=== PATIENT | female | born 1950 | race Hispanic/Latino ===

== ENCOUNTER 2017-09-11 09:41 | Day surgery (SDC) | payer MEDICARE ==
--- NOTE | 2017-09-11 11:18 | CP.SDSHP ---
Same Day Surgery H & P - History Proposed Procedure: endosocpy Pre-Op Diagnosis: dysphagia, epig pain - Previous Medical/Surgical History Neuro: Seizure Disorder - Allergies Allergies: Allergies acetaminophen [From Tylenol] Adverse Reaction (Verified 09/11/17 10:16) ANAPHYLAXIS alprazolam [From Xanax] Adverse Reaction (Verified 09/11/17 10:16) ANAPHYLAXIS celecoxib [From Celebrex] Adverse Reaction (Verified 09/11/17 10:16) ANAPHYLAXIS codeine Adverse Reaction (Verified 09/11/17 10:16) ANAPHYLAXIS erythromycin base Adverse Reaction (Verified 09/11/17 10:16) ANAPHYLAXIS guaifenesin [From Robitussin] Adverse Reaction (Verified 09/11/17 10:16) ANAPHYLAXIS Penicillins Adverse Reaction (Verified 09/11/17 10:16) ANAPHYLAXIS sertraline [From Zoloft] Adverse Reaction (Verified 09/11/17 10:16) ANAPHYLAXIS ANTIHYSTAMINE Adverse Reaction (Uncoded 09/11/17 10:16) ANAPHYLAXIS - Physical Exam Vital Signs: Vital Signs 09/11/17 10:47 Temperature 98.5 F Pulse Rate 87 Respiratory 16 Rate Blood Pressure 105/62 O2 Sat by Pulse 96 Oximetry Mental Status: Alert & Oriented x3 Neuro: WNL Heart: WNL Lungs: WNL GI: WNL - {Optional Preform as Required} Abdomen: WNL - Impression Impression: dysphagia Pt. Evaluated Today:Candidate for Anesthesia & Procedure: Yes - Date & Time Date: 09/11/17 Time: 11:18 Short Stay Discharge - Short Stay Discharge Admitting Diagnosis/Reason for Visit: GENERALIZED ABDOMINAL PAIN Disposition: HOME/ ROUTINE
[2017-09-11] MEDS ORDERED: Lactated Ringer's 1,000 ML IV ONE (11:30)
[2017-09-11] MEDS ORDERED: Propofol 10 mg/ml Inj (20 ML) ONE (11:32)
[2017-09-11 12:20] VITALS: TEMP 98
[2017-09-11 12:37] VITALS: BP 132/76; PULSE 84; RESP 17; O2SAT 97
== END 2017-09-11 13:00 | disposition home or self-care (01) ==
LOC: C.ENDO 09:41
PROVIDERS: ATTEND Internal Medicine Gastroenterology
DX: R10.84 Generalized abdominal pain (principal); K21.0 Gastro-esophageal reflux disease with esophagitis; K29.70 Gastritis, unspecified, without bleeding; K44.9 Diaphragmatic hernia without obstruction or gangrene; G40.909 Epilepsy, unspecified, not intractable, without status epilepticus; Z79.1 Long term (current) use of non-steroidal anti-inflammatories (NSAID)
CPT/HCPCS: 43235; 88305; 88312; 88342; J2001; J2704; J7120

== ENCOUNTER 2018-07-01 15:32 | Emergency (ER) | payer MEDICARE ==
[2018-07-01 15:39] VITALS: PULSE 87
[2018-07-01 15:45] VITALS: BMI 35.5
--- NOTE | 2018-07-01 16:06 | RAD ---
Date of service: 07/01/2018 PROCEDURE: CHEST RADIOGRAPH, 1 VIEW HISTORY: Seizure COMPARISON: None available. FINDINGS: LUNGS: The lungs are well inflated and clear. PLEURA: No pneumothorax or pleural fluid seen. CARDIOVASCULAR: Normal. OSSEOUS STRUCTURES: No significant abnormalities. VISUALIZED UPPER ABDOMEN: Normal. OTHER FINDINGS: None. IMPRESSION: No active pulmonary disease.
[2018-07-01 16:28] LABS: SQUAMOUS EPITHIAL 1 /hpf (0-5); URINE BILIRUBIN NEGATIVE (NEGATIVE); URINE BLOOD NEGATIVE (NEGATIVE); URINE CLARITY Clear (Clear); URINE COLOR Yellow (YELLOW); URINE GLUCOSE (UA) NORMAL (Normal); URINE LEUKOCYTE ESTERASE TRACE Leu/uL (Negative); URINE PROTEIN NEGATIVE (NEGATIVE); URINE UROBILINOGEN NORMAL mg/dL (0.2-1.0)
[2018-07-01 16:29] LABS: BASO # 0.1 K/uL (0.0-0.2); BASO % 0.9 % (0.0-2.0); EOS # 0.3 K/uL (0.0-0.7); EOS % 3.1 % (0.0-4.0); LYMPH # 1.7 K/uL (1.0-4.3); LYMPH % 20.2 % (20.0-40.0); MEAN CELL VOLUME 90.2 fL (81.0-99.0); MEAN CORPUSCULAR HEMOGLOBIN 31.6 pg (27.0-31.0); MEAN PLATELET VOLUME 8.4 fL (7.2-11.7); MONO # 0.8 K/uL (0.0-0.8); MONO % 9.4 % (0.0-10.0); NEUT # 5.6 K/uL (1.8-7.0); NEUT % 66.4 % (50.0-75.0); NRBC % 0.1 % (0.0-2.0); RBC 4.74 Mil/uL (3.80-5.20); RED CELL DISTRIBUTION WIDTH 13.4 % (11.5-14.5); WHITE BLOOD COUNT 8.4 K/uL (4.8-10.8)
[2018-07-01 16:42] LABS: BARBITURATES, UR NEGATIVE (NEGATIVE); BENZODIAZEPINES, UR NEGATIVE (NEGATIVE); OPIATES, UR NEGATIVE (NEGATIVE); PHENCYCLIDINE, UR NEGATIVE (NEGATIVE)
[2018-07-01 16:42] LABS: ALB/GLOB RATIO 1.3 (1.0-2.1); ALBUMIN 3.9 g/dL (3.5-5.0); ALT/SGPT 30 U/L (9-52); AST/SGOT 20 U/L (14-36); BLOOD UREA NITROGEN 14 mg/dL (7-17); CALCIUM 9.7 mg/dl (8.6-10.4); GFR AFRICAN-AMERICAN > 60; GFR NON-AFRICAN AMERICAN > 60
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
[2018-07-01 18:38] VITALS: BP 123/75; RESP 26; TEMP 98.2; O2SAT 96
--- NOTE | 2018-07-02 11:03 | CARD ---
APPROVED REPORT Date of service: 07/01/2018 EKG Measurement Heart [id number] <Conclusion> Normal sinus rhythm incpmplete rbbb.
== END 2018-07-01 18:46 | disposition home or self-care (01) ==
LOC: C.ER 15:32
DX: R56.9 Unspecified convulsions (principal)
CPT/HCPCS: 71045; 80053; 81001; 82550; 82948; 85025; 93005; 96374; 99285; G0480; J2060

== ENCOUNTER 2019-01-11 10:14 | Outpatient (CLI) | payer MEDICARE | END 2019-01-11 10:15 | disposition home or self-care (01) | LOC: C.USIC 10:14 | DX: R10.13 Epigastric pain (principal); K76.0 Fatty (change of) liver, not elsewhere classified ==

== ENCOUNTER 2019-02-23 15:50 | Emergency (ER) | payer MEDICARE ==
[2019-02-23 15:50] VITALS: BMI 35.5
--- NOTE | 2019-02-23 16:21 | C.PDOC ---
Time Seen by Provider: 02/23/19 16:10 Chief Complaint (Nursing): Seizure Past Medical History Vital Signs: Last Vital Signs Temp Pulse 86 02/23/19 16:02 Resp 18 02/23/19 16:02 BP 147/83 02/23/19 16:02 Pulse Ox 94 L 02/23/19 16:02 - Medical History PMH: Depression, Gall Bladder Disease, Seizures (LAST SEIZURE 3 YEARS AGO) Denies: Chronic Kidney Disease - Social History Hx Alcohol Use: No Hx Substance Use: No ED Course And Treatment O2 Sat by Pulse Oximetry: 94 Disposition - Disposition
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
[2019-02-23 16:42] LABS: BASO # 0.1 K/uL (0.0-0.2); BASO % 1.1 % (0.0-2.0); EOS # 0.3 K/uL (0.0-0.7); EOS % 3.2 % (0.0-4.0); HEMOGLOBIN 15.5 g/dL (11.0-16.0); LYMPH # 2.1 K/uL (1.0-4.3); LYMPH % 23.1 % (20.0-40.0); MEAN CELL VOLUME 90.5 fL (81.0-99.0); MEAN CORPUSCULAR HEMOGLOBIN 30.4 pg (27.0-31.0); MEAN CORPUSCULAR HGB CONC 33.6 g/dL (33.0-37.0); MEAN PLATELET VOLUME 8.4 fL (7.2-11.7); MONO # 0.7 K/uL (0.0-0.8); MONO % 8.2 % (0.0-10.0); NEUT # 5.9 K/uL (1.8-7.0); NEUT % 64.4 % (50.0-75.0); RBC 5.09 Mil/uL (3.80-5.20); WHITE BLOOD COUNT 9.1 K/uL (4.8-10.8)
[2019-02-23 17:04] LABS: BLOOD UREA NITROGEN 15 mg/dL (7-17); CALCIUM 10.1 mg/dl (8.6-10.4); GFR NON-AFRICAN AMERICAN > 60
--- NOTE | 2019-02-23 17:35 | CT ---
Date of service: 02/23/2019 PROCEDURE: CT HEAD WITHOUT CONTRAST. HISTORY: seizure right ARM DYSTONIA COMPARISON: 08/14/2012 TECHNIQUE: Axial computed tomography images were obtained through the head/brain without intravenous contrast. Radiation dose: Total exam DLP = 1046.54 mGy-cm. This CT exam was performed using one or more of the following dose reduction techniques: Automated exposure control, adjustment of the mA and/or kV according to patient size, and/or use of iterative reconstruction technique. FINDINGS: HEMORRHAGE: No intracranial hemorrhage. BRAIN: Persistent stable prominent volume loss in the left posterior frontal/temporal regions with associated cystic encephalomalacia. Scattered focal lucencies in the subcortical and periventricular white matter suggestive for chronic microvascular ischemic change. Additional focal areas of confluent low attenuation seen within right temporal subcortical white matter as demonstrated on series 4 images 15 through 17 which appears mildly increased in prominence since the prior study dated 08/14/2012; although, some mild decreased attenuation was noted at that level at that time. Adjacent curvilinear cystic changes noted more medially at that level as seen on series 4, images 17-19. This may be the sequelae of chronic ischemic change; however, additional etiologies are not excluded. Correlation with MRI may be helpful if clinically indicated. Punctate right caudate head lacunar infarcts. VENTRICLES: Unremarkable. No hydrocephalus. CALVARIUM: Persistent left-sided craniotomy. PARANASAL SINUSES: Mild mucosal thickening of the sphenoid sinuses. MASTOID AIR CELLS: Partial opacification of the bilateral mastoid air cells. OTHER FINDINGS: Fullness in the intra sellar region. IMPRESSION: 1. Persistent stable prominent volume loss in the left posterior frontal/temporal regions with associated cystic encephalomalacia. 2. Chronic microvascular ischemic changes in the periventricular and subcortical white matter. 3. Additional focal areas of confluent low attenuation seen within right temporal subcortical white matter as demonstrated on series 4 images 15 through 17 which appears mildly increased in prominence since the prior study dated 08/14/2012; although, some mild decreased attenuation was noted at that level at that time. Adjacent curvilinear cystic changes noted more medially at that level as seen on series 4, images 17-19. This may be the sequelae of chronic ischemic change; however, additional etiologies are not excluded. Correlation with MRI may be helpful if clinically indicated. 4. Punctate right caudate head lacunar infarcts. 5. Sinus mucosal disease as above. If symptoms persists, consider correlation with MRI.
[2019-02-23 18:10] VITALS: BP 128/75; PULSE 83; RESP 20; TEMP 97.8; O2SAT 96
== END 2019-02-23 18:12 | disposition home or self-care (01) ==
LOC: C.ER 15:50
DX: R56.9 Unspecified convulsions (principal)
CPT/HCPCS: 70450; 80048; 82948; 85025; 96374; 99285; J2060